=== PATIENT | male | born 1995 | race Caucasian/White ===

== ENCOUNTER 2018-06-25 11:35 | Emergency (ER) | payer BC ==
[~2018-06-25] VITALS: Ht 182.9 cm; Wt 68.0 kg
[2018-06-25 11:43] VITALS: BP 102/89
== END 2018-06-25 12:01 | disposition home or self-care (01) ==
LOC: ER 11:37
DX: R07.89 Other chest pain (principal); Z02.79 Encounter for issue of other medical certificate; Z60.2 Problems related to living alone
CPT/HCPCS: 99281; A4606; Z7610; Z7502